=== PATIENT | female | born 1985 | race Two or more races ===

== ENCOUNTER 2017-08-20 08:10 | Emergency (ER) | payer OTHER ==
[~2017-08-20] VITALS: Ht 160 cm; Wt 56.7 kg
--- NOTE | 2017-08-20 08:23 | Emergency Room Report ---
History of Present Illness General Chief Complaint: Abdominal Pain Source: Patient Present Illness HPI [id number] presents BIBEMS with intermittent lower abd/pelvic pain since yesterday morning Pain is intermittent, 6/10, cramping in nature Associated with vomiting this morning No diarrhea, fever/chills Period started yesterday with period. Has had painful menstruation last 8 months, each month during period No other med problems, previous surgery Denies dysuria Denies sick contacts, foreign travel Took ibuprofen with some improvement No history of fibroids, ovarian cysts Allergies: Coded Allergies: No Known Allergies (Unverified , 08/20/17) Patient History Past Medical History: none Past Surgical History: none Pertinent Family History: none Now: No Immunizations: UTD Reviewed Nursing Documentation: PMH: Agreed, PSxH: Agreed Nursing Documentation-PMH Past Medical History: No Stated History Review of Systems All Other Systems: negative except mentioned in HPI Physical Exam Vital Signs Date Time Temp Pulse Resp B/P (MAP) Pulse Ox O2 Delivery O2 Flow Rate FiO2 08/20/17 08:07 97.3 99 20 112/78 100 Room Air Sp02 EP Interpretation: reviewed, normal General Appearance: normal inspection, well appearing, no apparent distress, alert, GCS 15, non-toxic, other - Writhing on stretcher, dramatic, tearful Head: normocephalic, atraumatic Eyes: bilateral eye PERRL, bilateral eye EOMI ENT: normal ENT inspection, hearing grossly normal, normal voice Neck: normal inspection, full range of motion, supple, no bony tend Respiratory: normal inspection, lungs clear, normal breath sounds, no respiratory distress, no retraction, no wheezing Cardiovascular #1: regular rate, rhythm, no edema Gastrointestinal: normal inspection, normal bowel sounds, soft, no mass, no bruit, non-distended, no guarding, no hernia, no pulsatile mass, no rebound, other - Mild ttp central/suprapubic area. No rebound, guarding, peritonitis. Genitourinary: no CVA tenderness Musculoskeletal: normal inspection, back normal, normal range of motion, Salazar' s Sign negative Neurologic: normal inspection, alert, oriented x3, responsive, electromechanisms design drafter III-XII nml as tested, motor strength/tone normal, speech normal Psychiatric: normal inspection, judgement/insight normal, mood/affect normal Skin: normal inspection, normal color, no rash Lymphatic: normal inspection Medical Decision Making Diagnostic Impression: Primary Impression: Abdominal pain Qualified Codes: R10.30 - Lower abdominal pain, unspecified Additional Impression: Ileitis ER Course VSS. Afebrile. Mild focal ttp to suprapubic area Leuks elevated. LFTs, lipase normal. UA: equivocal for UTI. +hematuria (c/w period). CT done as source of infection was not definitive. Dilated fluid filled ileum and prox colon. No mark anthony-appy inflammation, unlikely appy per Dr Smith verbal report. Empiric Rocephin IV given Med records sent from [facility]. Patient had kidney stone previously - patient states "long time ago." Does endorse pyelo a few months prior Spoke to Dr Woodall at [facility]. In January, she had CT as well. Dilated ileum at that time as well. ?crohns/IBD Dr Woodall accepted for transfer, med/surg at 1124am Rhythm Strip Diag. Results EP Interpretation: yes Rate: 85 Rhythm: NSR, no PVC's Last Vital Signs Date Time Temp Pulse Resp B/P (MAP) Pulse Ox O2 Delivery O2 Flow Rate FiO2 08/20/17 08:07 97.3 99 20 112/78 100 Room Air Status: improved Disposition: ADMITTED INPATIENT Condition: Serious MAURICE SPIVEY M.D. Aug 20, 2017 08:23
[2017-08-20] MEDS ORDERED: Morphine Sulfate 2mg/ml Inj IVP ONE ×2 (08:30→12:00)
[2017-08-20] MEDS ORDERED: Ketorolac 30mg Inj IV ONE (08:30)
[2017-08-20 08:47] LABS: MEAN CORPUSCULAR HEMOGLOBIN 28.4 PG (27.0-31.0); MEAN CORPUSCULAR HGB CONC 32.4 G/DL (32.0-36.0); MEAN CORPUSCULAR VOLUME 87 FL (80-99); MEAN PLATELET VOLUME 6.1 FL (6.5-10.1); PLATELET COUNT 462 K/UL (150-450); RED BLOOD COUNT 5.64 M/UL (4.20-5.40); RED CELL DISTRIBUTION WIDTH 12.2 % (11.6-14.8); WHITE BLOOD COUNT 17.5 K/UL (4.8-10.8)
[2017-08-20 08:59] LABS: ALANINE AMINOTRANSFERASE 17 U/L (3-33); ALBUMIN/GLOBULIN RATIO 1.4 (1.0-2.7); ANION GAP 18 (5-15); ASPARTATE AMINO TRANSFERASE 17 U/L (5-40); CALCIUM 10.9 mg/dL (8.6-10.2); CARBON DIOXIDE 21 mEQ/L (20-30); CHLORIDE 100 mEQ/L (98-107); CREATININE 0.7 mg/dL (0.5-0.9); GLOMERULAR FILTRATION RATE > 60 mL/min (>60); HEMOLYSIS 1; LIPASE 47 U/L (< 60); POTASSIUM 3.3 mEQ/L (3.4-4.9); SODIUM 139 mEQ/L (135-145); TOTAL PROTEIN 8.9 g/dL (6.6-8.7)
[2017-08-20 09:02] VITALS: BP 108/72
[2017-08-20] MEDS ORDERED: cefTRIAXone 1 GM in NS 55 ML IVPB ONE (09:15)
[2017-08-20 09:18] LABS: APPEARANCE,URINE CLOUDY; KETONES,URINE 2+ (NEGATIVE); LEUKOCYTE ESTERASE ,URINE 2+ (NEGATIVE); NITRITE,URINE NEGATIVE (NEGATIVE); PH,URINE 5 (4.5-8.0); PROTEIN,URINE 3+ (NEGATIVE); UROBILINOGEN,URINE 1 MG/DL (0.0-1.0)
[2017-08-20 09:19] LABS: BACTERIA,URINE MODERATE /HPF; RBC,URINE TNTC /HPF (0 - 2); SQUAMOUS EPITHELIAL CELL,UR OCCASIONAL /LPF (NONE/OCC); WBC,URINE 0-2 /HPF (0 - 2)
[2017-08-20 09:21] LABS: ICTOTEST NEGATIVE
[2017-08-20 09:28] LABS: BAND NEUTROPHILS % (MANUAL) 0 % (0-8); BASOPHILS % (MANUAL) 0 % (0-2); EOSINOPHILS % (MANUAL) 1 % (0-3); LYMPHOCYTES % (MANUAL) 5 % (20-45); NEUTROPHILS % (MANUAL) 89 % (45-75); PLATELET ESTIMATE INCREASED; PLATELET MORPHOLOGY NORMAL; TOTAL CELLS COUNTED 100
[2017-08-20 09:30] VITALS: BP 98/65
--- NOTE | 2017-08-20 10:47 | Diagnostic Imaging Report ---
Clinical Indication: And lower abdominal and pelvic pain since yesterday morning, cramping in nature, associated with vomiting this morning Technique: No oral contrast utilized, per emergency room physician request IV administration nonionic contrast. Venous phase spiral acquisition obtained through the abdomen and pelvis. Multiplanar reconstructions were generated. Total dose length product 76 mGycm. CTDIvol(s) 15 mGy. Dose reduction achieved using automated exposure control Comparison: None Findings: The entire ileum is distended and fluid-filled. The wall does not appear to be thickened, except for perhaps the terminal ileum. The ascending colon is also distended and fluid-filled. It gradually tapers to near normal caliber colon in the distal ascending colon, but the remainder of the colon remains upper limits of normal in caliber and fluid-filled. There is equivocal mild wall thickening of the sigmoid colon, although this could be an artifact of less distention than proximally. Some free intraperitoneal fluid is seen within the pelvis. There is also some inflammatory change of the pelvic fat anteriorly. The appendix is mildly dilated, measuring up to 9 mm in caliber, and is fluid-filled and demonstrates slight rim enhancement. However, there is no inflammation of the immediate periappendiceal fat. Prominent node is seen adjacent to the appendix. There is no evidence of diverticulosis or diverticulitis. No free intraperitoneal air. The distal esophagus, stomach, duodenum are unremarkable. No significant vascular disease is demonstrated In or adjacent to to the gallbladder fossa, there is a 2.2 cm rim calcified structure. Is unclear whether this is coming off the liver or off of the fundus of the gallbladder. The remainder of the liver is unremarkable. The remainder of the gallbladder is unremarkable. The bile ducts are unremarkable. The pancreas, spleen, adrenals, kidneys are unremarkable. Uterus and adnexal structures are unremarkable. The included lung bases are clear. The bones are unremarkable. Impression: Dilated fluid-filled ileum and proximal colon, fluid-filled upper limits of normal caliber transverse and descending colon. Findings are consistent with enteritis, nonspecific as regards etiology, could be infectious or noninfectious inflammatory, much less likely ischemic given patient's age and lack of current vascular pathology. Given mild wall thickening of the terminal ileum, possibly of Crohn's enteritis should be considered Mildly dilated fluid-filled appendix. Given the above findings, suspect secondary to the generalized enteritis changes. Acute appendicitis considered much less likely although not completely excludable Free fluid within the pelvis. May be related to the above, or could be physiologic secondary to ovarian follicular rupture Unusual 2.2 cm rim calcified structure in or adjacent to the gallbladder fossa. Suspect most likely a post inflammatory lesion of the liver. Focal porcelain gallbladder changes also possible but much less likely; suspect that the lesion is outside the gallbladder Findings discussed by phone with Dr. Fisher at the time of interpretation The CT scanner at [facility] is accredited by the [employer] and the scans are performed using protocols designed to limit radiation exposure to as low as reasonably achievable to attain images of sufficient resolution adequate for diagnostic evaluation.
[2017-08-20 11:04] VITALS: BP 91/68
[2017-08-20 12:10] VITALS: BP 105/73
[2017-08-20 13:05] VITALS: BP 115/76
== END 2017-08-20 13:15 | disposition short-term general hospital (02) ==
LOC: EDBD 08:10 → EMR 08:35
DX: K52.9 Noninfective gastroenteritis and colitis, unspecified (principal)
CPT/HCPCS: 36415; 74177; 80053; 81003; 83690; 85007; 85025; 87086; 96361; 96374; 96375; 99285; J0696; J1885; J2270; J2405; Q9967